=== PATIENT | female | born 1940 | race Native Hawaiian/Other Pacific Islander ===

== ENCOUNTER 2016-05-03 09:45 | Emergency (ER) | payer BC, MEDICARE ==
--- NOTE | 2016-05-03 11:00 | Emergency Department Report ---
HPI - General Chief Complaint: Pain General Time Seen by Provider: 05/03/16 10:54 - HPI HPI: Chief complaint: Esophageal pain and spasm HPI: Patient is 75-year-old female with a history of Schatzki's ring status post dilatation a month ago and esophageal motility dysfunction with esophageal spasm who was hospitalized at [facility] last month on the to April 02. Patient states that she was switched from Zantac to a PPI and does not think it is helping her as much as the Zantac. Patient states yesterday she started having the same pain she's had in the past describes it as a "hurt" it is worse with laying down and nothing over different movements. Patient states is the same pain that she always has with this problem. Patient states she has no difficulty eating and no vomiting. Mode of arrival: private car Source: Patient and upper GI reports that patient brought with her. Severity: Severe Improved with: Nothing Worsened with: Nothing Associated signs and symptoms: See above ED Past Medical Hx - Past Medical History Hx Hypertension: Yes Hx Renal Disease: Yes (polycystic kidney disease) Hx Asthma: Yes (mainly as child) - Surgical History Hx Appendectomy: Yes Hx Breast Surgery: Yes (breast reduction) Additional Surgical History: Esophageal dilatation - Social History Smoking Status: Never Smoker Substance Use Type: None - Medications Home Medications: Home Medications Medication Instructions Recorded Confirmed Last Taken Type Levothyroxine Sodium [Tirosint] 137 mcg PO QAM 11/24/12 12/05/12 12/05/12 History Valsartan [Diovan] 11/24/12 12/05/12 12/05/12 History Cholecalciferol (Vitamin D3) 3,000 unit PO DAILY 12/05/12 12/05/12 11/20/12 History [Vitamin D3] Hydrocodone Bit/Acetaminophen 1 tab PO Q6H PRN 12/05/12 12/05/12 11/20/12 History [Hydrocodon-Acetaminoph 7.5-650 mg] Liothyronine Sodium [Cytomel] 5 mcg PO 12/05/12 12/05/12 12/05/12 History Melatonin 5 mg PO 12/05/12 12/05/12 11/20/12 History [place]-3 Fatty Acids [Fish Oil] 3,000 mg PO 12/05/12 12/05/12 11/20/12 History Phentermine HCl 37.5 mg PO QAM 12/05/12 12/05/12 11/20/12 History traMADol [Ultram 50 MG tab] 50 mg PO Q4HR PRN 12/05/12 12/05/12 12/04/12 History Hyoscyamine Subl [Levsin Sl 0.125 0.125 mg SL Q4HR PRN #10 tablet 05/03/16 Unknown Rx TAB] ED Review of Systems ROS: Stated complaint: ESOPHAGEAL SPASMS Other details as noted in HPI ROS Constitutional: No fever ENT: No uri symptoms Cardiovascular: No chest pain Respiratory: No sob or cough GI: No nausea vomiting or diarrhea : No dysuria frequency or urgency, Skin: No rash Neuro: No focal weakness or numbness Psych: No depression Jeferson/lymph: No edema Physical Exam - Physical Exam Vital Signs: Vital Signs 05/03/16 10:07 Temperature 98.4 F Pulse Rate 79 Respiratory 20 Rate Blood Pressure 134/88 O2 Sat by Pulse 96 Oximetry Physical Exam: GENERAL: The patient is well-developed well-nourished in no acute distress. HEENT: Normocephalic. Atraumatic. Extraocular motions are intact. Patient has moist mucous membranes. NECK: Supple. No meningitic signs are noted. There is no adenopathy noted. CHEST/LUNGS: Clear to auscultation. There is no respiratory distress noted. HEART/CARDIOVASCULAR: Regular. There is no tachycardia. There is no gallop rub or murmur. ABDOMEN: Abdomen is soft, nontender. Patient has normal bowel sounds. There is no abdominal distention. SKIN: There is no rash. There is no edema. There is no diaphoresis. NEURO: The patient is awake, alert, and oriented. The patient is cooperative. The patient has no focal neurologic deficits. The patient has normal speech. MUSCULOSKELETAL: There is no tenderness or deformity. There is no limitation range of motion. There is no evidence of acute injury. ED Course Vital Signs 05/03/16 10:07 Temperature 98.4 F Pulse Rate 79 Respiratory 20 Rate Blood Pressure 134/88 O2 Sat by Pulse 96 Oximetry - Reevaluation(s) Reevaluation #1: 05/03/16 Patient's GI specialist do not come to this hospital. Discussed with who has seen the patient in the past and is familiar with her but is not her current GI specialist. He recommends Ativan and Levsin which patient was given improvement. Critical care attestation.: If time is entered above; I have spent that time in minutes in the direct care of this critically ill patient, excluding procedure time. ED Disposition Clinical Impression: Esophageal spasm Disposition: DISCHARGED TO HOME OR SELFCARE Is pt being admited?: No Does the pt Need Aspirin: No Condition: Stable Instructions: Esophageal Spasm (ED) Prescriptions: Hyoscyamine Subl [Levsin Sl 0.125 TAB] 0.125 mg SL Q4HR PRN #10 tablet PRN Reason: Spasms Referrals: CINDY JALLOH MD [Primary Care Provider] - 3-5 Days KASH MURRIETA MD [Staff Physician] - 3-5 Days Time of Disposition: 11:39
[2016-05-03] MEDS ORDERED: ATIVAN ONE (12:13)
[2016-05-03] MEDS ORDERED: ATIVAN IV ONE (12:14)
[2016-05-03 12:26] VITALS: BP 130/84
== END 2016-05-03 12:26 | disposition home or self-care (01) ==
LOC: ED 09:45
DX: K22.4 Dyskinesia of esophagus (principal); I10 Essential (primary) hypertension; J45.909 Unspecified asthma, uncomplicated; Z90.49 Acquired absence of other specified parts of digestive tract
CPT/HCPCS: 96374; 99282; J2060